=== PATIENT | male | born 1960 | race Caucasian/White ===

== ENCOUNTER 2017-10-05 07:19 | Day surgery (SDC) | payer OTHER ==
[2017-10-01 18:50] VITALS: BMI 41.8
[2017-10-05] MEDS ORDERED: morphine CARPU-JECT 10 MG/1 ML DISP.SYRIN ONE (08:16)
[2017-10-05] MEDS ORDERED: LIDOCAINE HCL 1%, 10 MG/ML (20ML VIAL) ONE (08:18)
[2017-10-05] MEDS ORDERED: BUPIVACAINE HCL/EPINEPHRINE/PF 30 ML VIAL IJ ONE (08:18)
[2017-10-05] MEDS ORDERED: EPINEPHrine 1:1,000 1 MG/1 ML - 30ML VIAL (INJECTION) ONE (09:10)
--- NOTE | 2017-10-05 09:22 | OP ---
Operative Note - Note: Operative Date: 10/05/17 Operation: r knee arthroscopy Findings: tear Surgeon: Stanislav Baird V Anesthesia: General Specimens Removed: n Estimated Blood Loss (mls): 1 Operative Report Dictated: Yes
[2017-10-05] MEDS ORDERED: MIDAZOLAM HCL 2 MG/2 ML SINGLE DOSE VIAL ONE (09:26)
[2017-10-05] MEDS ORDERED: PROPOFOL 20 ML ONE ×3 (09:26→09:27)
[2017-10-05] MEDS ORDERED: SUCCINYLCHOLINE CHLORIDE 200 MG/10 ML VIAL ONE (09:26)
[2017-10-05] MEDS ORDERED: LIDOCAINE HCL 2% JELLY (5 ML/TUBE) ONE (09:44)
[2017-10-05] MEDS ORDERED: ONDANSETRON 4 MG/2 ML VIAL ONE (09:44)
[2017-10-05] MEDS ORDERED: KETOROLAC TROMETHAMINE 30 MG/1 ML VIAL ONE (09:44)
[2017-10-05] MEDS ORDERED: LIDOCAINE HCL/PF 2% SDV 5ML VIAL ONE (09:44)
[2017-10-05] MEDS ORDERED: ceFAZolin SODIUM 1 GM VIAL ONE (09:44)
[2017-10-05] MEDS ORDERED: DEXAMETHASONE SOD PHOSPHATE 4 MG/1 ML VIAL ONE (09:44)
[2017-10-05] MEDS ORDERED: ePHEDrine SULFATE 50 MG/1 ML AMPULE ONE (09:54)
[2017-10-05] MEDS ORDERED: PROMETHAZINE HCL 25 MG/1 ML VIAL IVPUSH PRN (10:27)
[2017-10-05] MEDS ORDERED: oxyCODONE HCL 5 MG TABLET PO PRN ×2 (10:27)
[2017-10-05] MEDS ORDERED: ONDANSETRON 4 MG/2 ML VIAL IVPUSH PRN (10:27)
[2017-10-05] MEDS ORDERED: LACTATED RINGERS SOLUTION 1,000 ML IV SCH (10:30)
--- NOTE | 2017-10-05 11:34 | OP ---
DATE OF OPERATION: 10/05/2017 SURGEON: Stanislav Doe MD ANESTHESIA: Angel Arnett MD COMPLICATIONS: None. WOUND TYPE: Clean. SPECIMENS: None. BLOOD LOSS: Minimal. FINDINGS: See text. PREOPERATIVE DIAGNOSIS: Right knee internal derangement. POSTOPERATIVE DIAGNOSIS: Right knee medial meniscus tear, multiple loose bodies, and osteochondral fracturing of medial femoral condyle. PROCEDURE PERFORMED: Medial meniscectomy, loose body removal, and microfracture of medial femoral condyle. INDICATIONS: This is a 56-year-old man whom I have known for quite some time with a painful knee and a positive MRI. Risks and benefits explained and understood. DESCRIPTION OF PROCEDURE: The patient was brought to the operating room, placed on the table in the supine position. Sterile prepping and draping was performed with the Betadine solution. Antibiotics were given intravenously. We did not use a tourniquet. Visualization was excellent throughout. EUA was unremarkable. After sterile prepping and draping with proper time-out with pumper on the left leg, after the arthroscope entered through the anterolateral portal, anteromedial portal was opened after sounding with the needle using all blunt trocars. Loose Body Removal: Multiple loose bodies were encountered. He had grade 3 changes anteriorly. He had heavy synovitis. The patella tracked centering at about 30 degrees. Loose bodies were found in the medial compartment and in the notch. The largest were about 9 mm. These were grasped, crushed, and removed. Microfracture: The medial femoral condyle had deep chondral loss down to bare bone in the central portion. Chondroplasty was performed to remove unstable tissue, but taking as little as possible, and in the central areas of bare bone, these were perforated with a subchondral pick to promulgate fibrocartilaginous ingrowth. Medial Meniscectomy: With leg off the side of the bed using a side post, we were able to gain good access to the posterior aspect of the medial compartment. We resected the full radius from the posterior horn normalizing the normal anterior body of the meniscus. Conclusion: We removed all loose chips and bits. We closed the portals with tapes, dressing was applied, and we discharged to home with knee sheet and Advil for pain only. I will see him in the office for followup in 1 week. STANISLAV DOE M.D. [id number]
[2017-10-05 11:57] VITALS: BP 130/70; PULSE 70; TEMP 98
== END 2017-10-05 12:02 | disposition home or self-care (01) ==
LOC: FASU 07:19
PROVIDERS: ATTEND Orthopaedic Surgery
PROC: 0SQC4ZZ Repair Right Knee Joint, Percutaneous Endoscopic Approach (ICD-10-PCS; 2017-10-05)
PROC: 0SBC4ZZ Excision of Right Knee Joint, Percutaneous Endoscopic Approach (ICD-10-PCS; principal; 2017-10-05 09:54)
DX: S83.241A Other tear of medial meniscus, current injury, right knee, initial encounter (principal); M23.41 Loose body in knee, right knee; M24.10 Other articular cartilage disorders, unspecified site; X58.XXXA Exposure to other specified factors, initial encounter; Y93.9 Activity, unspecified; Y92.9 Unspecified place or not applicable
CPT/HCPCS: 94760